=== PATIENT | female | born 1940 | race Caucasian/White ===

== ENCOUNTER → 2017-02-15 | Outpatient (CLI) | payer MEDICARE, MEDICAID ==
[~2017-02-15] MED LIST: BACTRIM DS TAB1 EAC1 ORAL; BENICAR20 MG ORAL; CREON DR 12,001 EACH PO; CREON DR 24,001 EACH PO; JANUMET 50-1,01 EACH ORAL; KEFLEX500 MG ORAL; MOBIC7.5 MG ORAL; NEXIUM40 MG ORAL; NORCO 5-325 TA1 EACH ORAL; RIBAVIRIN200 M1 ORAL; SOVALDI400 MG PO; TRAMADOL HCL50 MG ORAL; VITAMIN D-32000 UNI1 PO
--- NOTE | 2017-02-15 13:28 | Diagnostic Imaging Report ---
Indication: COUGH Technique: Two views of the chest Comparison: 11/21/2014 Findings: There is stable blunting of left costophrenic sulcus but no fluid is seen posteriorly. Suspect chronic. Lungs and pleural spaces are otherwise clear. Heart size is normal. Aorta tortuous and calcified. Upper mediastinum is unremarkable. The bones are unremarkable. There is no significant change Impression: No acute process
== END | disposition home or self-care (01) ==
LOC: RAD 11:58
DX: R05 Cough (principal)
CPT/HCPCS: 71020

== ENCOUNTER → 2017-02-17 | Day surgery (SDC) | payer MEDICARE, MEDICAID ==
[~2017-02-17] VITALS: Ht 160 cm; Wt 79.4 kg
[2017-02-17] VITALS (11 sets, daily range): BP systolic 108–138; BP diastolic 52–64
[~2017-02-17] MED LIST changes: +Bacitracin Oint 15gm Tube TOPIC ONE; +Betamethasone Sod Phos/Acetate 6 MG/ML INJ ONE; +Bupivacaine 0.5% Inj 30 ml vial INJ ONE; +LR 1000ml ONE; +Lidocaine 2% MPF 5ml Vial INJ ONE; +Midazolam 2mg/2ml Inj ONE; +NS Irrig 1000ml ONE; +Propofol 10mg/ml 20ml IV ONE; +Sterile Water Irrig 1000ml IRRIG ONE; +fentaNYL 100 mcg/2 mL IV ONE; +fentaNYL 100 mcg/2 mL IV PRN
--- NOTE | 2017-02-17 07:39 | Pre-Procedure Note/Attestation ---
Pre-Procedure Note/Attestation Complete Prior to Procedure Planned Procedure: right Procedure Narrative: Exostectomy second right digit Indications for Procedure Pre-Operative Diagnosis: Painful exostosis right second digit Painful corn second right digit with history of ulceration Attestation I attest that I discussed the nature of the procedure; its benefits; risks and complications; and alternatives (and the risks and benefits of such alternatives ), prior to the procedure, with the patient (or the patient's legal traffic workforce representative). I attest that, if there was a reasonable possibility of needing a blood transfusion, the patient (or the patient's legal traffic workforce representative) was given the [facility] standardized written summary, pursuant to the [place] Blood Safety Act ([place] Health and Safety Code # 1645, as amended). I attest that I re-evaluated the patient just prior to the surgery and that there has been no change in the patient's H&P, except as documented below: YASHIRA LOO Feb 17, 2017 07:39
--- NOTE | 2017-02-17 08:12 | Brief Operative Note ---
Immediate Post Operative Note Operative Note Pre-op Diagnosis: Painful exostosis right second digit Painful corn second right digit with history of ulceration Procedure: Exostectomy second right digit Post-op Diagnosis: same as pre-op Surgeon: Sylvia Anesthesiologist: Aurelia Etienne Specimen: yes Complications: none Estimated Blood Loss: minimal Drains: none Implant(s) used?: No YASHIRA LOO Feb 17, 2017 08:12
--- NOTE | 2017-02-17 08:21 | Anethesia Preoperative Eval ---
Anesthesia Pre-op PMH/ROS General Date of Evaluation: Feb 17, 2017 Time of Evaluation: 08:18 Anesthesiologist: mamadou ASA Score: ASA 2 Mallampati Score Class I : Soft palate, uvula, fauces, pillars visible Class II: Soft palate, uvula, fauces visible Class III: Soft palate, base of uvula visible Class IV: Only hard plate visible Mallampati Classification: Class II Surgeon: martin Diagnosis: exsostosis of right foot Surgical Procedure: exostectomy right 2nd digit lower extremiety Anesthesia History: none Family History: no anesthesia problems Allergies: Coded Allergies: EQUINE PROTEIN (Verified Allergy, Severe, Shortness of Breath, 08/09/14) Past Medical History Cardiovascular: Reports: HTN Pulmonary: Denies: COPD, PAVITHRA, asthma, other Gastrointestinal/Genitourinary: Denies: CRI, ESRD, GERD, other Endocrine: Reports: DM HEENT: Denies: [place] (L), [place] (R), cataract (L), cataract (R), glaucoma, other Hematology/Immune: Reports: anemia Musculoskeletal/Integumentary: Denies: DDD, DJD, OA, RA, edema, other PSxH Narrative: knee surgery Anesthesia Pre-op Phys. Exam Physician Exam Last Vital Signs Date Time Temp Pulse Resp B/P Pulse Ox O2 Delivery O2 Flow Rate FiO2 02/17/17 06:53 98.4 59 18 128/64 97 Room Air Constitutional: NAD Neurologic: CN 2-12 intact Cardiovascular: RRR Respiratory: CTA Gastrointestinal: S/NT/ND Airway Exam Mallampati Classification 2 Mallampati Score: Class II MO: full ROM: full Dentures: no lower, no upper Anesthesia Pre-op A/P Labs 104 Studies Pre-op Studies: EKG - sr Risk Assessment & Plan Plan: mac Status Change Before Surgery: No Pre-Antibiotics Drug: ancef Given Within 1 Hr of Incision: Yes Time Given: 07:30 TORO MARKHAM CRNA Feb 17, 2017 08:21
--- NOTE | 2017-02-17 08:23 | Immediate Post-Op Evaluation ---
Immediate Post-Op Evalulation Immediate Post-Op Evalulation Procedure: exostectomy right 2nd digit toe Date of Evaluation: Feb 17, 2017 Time of Evaluation: 08:15 IV Fluids: 500 Blood Pressure Systolic: 109 Blood Pressure Diastolic: 52 Pulse Rate: 55 Respiratory Rate: 14 O2 Sat by Pulse Oximetry: 100 Temperature (Fahrenheit): 98.3 Nausea: No Vomiting: No Complications none Patient Status: awake, reacts, patent Hydration Status: adequate Drug: ancef Given Within 1 Hr of Incision: Yes Time Given: 07:30 TORO MARKHAM CRNA Feb 17, 2017 08:23
--- NOTE | 2017-02-17 10:26 | 48 Hour Post Anesthesia Eval ---
Post Anesthesia Evaluation Procedure: exostectomy right 2nd digit toe Date of Evaluation: Feb 17, 2017 Time of Evaluation: 10:26 Blood Pressure Systolic: 125 0: 60 Pulse Rate: 70 O2 Sat by Pulse Oximetry: 99 Airway: patent Nausea: No Vomiting: No Hydration Status: adequate Mental Status/LOC: patient returned to baseline Post-Anesthesia Complications: none Follow-up care needed: N/A TORO MARKHAM CRNA Feb 17, 2017 10:26
--- NOTE | 2017-02-17 11:04 | Diagnostic Imaging Report ---
Indication: POST-OP Technique: 3 views right foot Comparison: none Findings: No acute fractures. No dislocations. Joint spaces are preserved. There is hammertoe deformity of the second third and fourth digits. There is minimal hallux valgus and metatarsus adductus. There is a small plantar spur Impression: No acute process
--- NOTE | 2017-02-17 17:28 | Operative Note - Dictated ---
DATE OF OPERATION: 02/17/2017 SURGEON: Yoseph Ward D.P.M. WOOD TILE INSTALLATION HELPER: Yu Vogel C.R.N.A. ANESTHESIA: Local standby. PREOPERATIVE DIAGNOSES: 1. Painful exostosis, second right digit. 2. Painful corn, second right digit. POSTOPERATIVE DIAGNOSES: 1. Painful exostosis, second right digit. 2. Painful corn, second right digit. PROCEDURES PERFORMED: Exostectomy, second right digit. Description Of The Operation: The patient was brought to the operating room and was placed on the operating room table in the supine position. IV sedation was administered by the anesthesiologist. Local anesthesia consisting of 50:50 mix of 2% Xylocaine plain and 0.5% Marcaine plain, total of 6 mL was administered to the second right digit. The foot was prepped and draped in the usual sterile manner. Attention was directed to the second digit and a 0.25-inch [place] drain was applied with a hemostat to the second right digit. Utilizing a 15 blade, a stab wound incision was performed at the dorsal medial aspect of the second right distal interphalangeal joint. The incision was deepened and utilizing a periosteal elevator, the soft tissue attachments were reflected off of the medial aspect of the intermediate phalanx. At this point, a Joann 44 drill was utilized to resect the exuberant exostosis. The bone piece was expressed out. The wound was copiously flushed utilizing sterile saline. The skin was then reapproximated utilizing 4-0 nylon in a simple interrupted type stitch. The wound was dressed utilizing an Adaptic 2 x 2 gauze and 1 inch Coban. The [place] drain was removed in toto. Vascular supply was noted to all digits of the right foot. The patient tolerated the procedure well and left the operating room to recovery room with all vital signs stable. Yoseph Ward D.P.M. DR: LACY JOB#: [id number] CC:
--- NOTE | 2017-02-17 18:07 | History and Physical Report ---
DATE OF ADMISSION: 02/17/2017 PODIATRIC HISTORY AND PHYSICAL: HISTORY OF PRESENT ILLNESS: This is a 76-year-old white female, who is admitted today for an outpatient exostectomy of her second right digit. The patient has been under my care for the past several years. She has been suffering from a painful corn on her second right digit which on occasions became ulcerated and infected. It was treated conservatively and recommendation was made to relieve the underlying cause of the corn formation in order to prevent further ulcerations and cellulitis in the future. PAST MEDICAL HISTORY: Remarkable for diabetes mellitus, gastritis, hepatitis C, hypertension, sciatica, and anemia. MEDICATIONS: Nexium, Creon, Mobic, Benicar, metformin, and Ultram. ALLERGIES: No known drug allergies. PODIATRIC EXAMINATION: VASCULAR SUPPLY: Dorsalis pedis and posterior tibial arteries are equally palpable measuring 1/4 bilaterally. Capillary filling time is less than 4 to 5 seconds to all digits bilaterally. Homans sign is negative. Mild varicosities and nonpitting edema is noted in bilateral lower extremity. NEUROLOGICAL: Examination reveals intact reflexes, Achilles and patellar, measuring 1/4 bilaterally. SENSATION: Proprioception and vibrations are all intact in bilateral lower extremity. Babinski is absent. Clonus is negative in bilateral lower extremity. MUSCULOSKELETAL: Exam reveals stage 3 hallux abductovalgus with bunion deformity, bilateral foot. The hallux is abutting the second right digit on the right foot. There is a nonreducible hammertoe deformity of the second right digit. The medial aspect of the second right digit is exuberant at the level of the distal interphalangeal joint. Joint range of motion is reduced in bilateral forefoot. No other structural deformities are noted. DERMATOLOGICAL: Examination reveals corn at the medial aspect of the second right digit at the level of the distal interphalangeal joint. The corn at this point is not ulcerated. No other ulcerations or lesions are noted bilaterally with the exception of dorsal erythema over the second right proximal interphalangeal joint. All nails are present and dystrophic bilaterally. ASSESSMENT: 1. Hallux abductovalgus with bunion deformity. 2. Hammertoe deformity. 3. Painful exostosis, second right digit. 4. Painful corn, second right digit. PLAN: The patient is admitted today for an exostectomy of the second right digit. Postoperative instructions were given to the patient. Postoperative medications were dispensed to the patient. The patient elected to proceed with surgery. Ysoeph Ward D.P.M. DR: Ирина JOB#: [id number] CC:
== END | disposition home or self-care (01) ==
LOC: SUR 05:48
DX: M89.9 Disorder of bone, unspecified (principal); L84 Corns and callosities; M21.612 Bunion of left foot; M21.611 Bunion of right foot; M20.41 Other hammer toe(s) (acquired), right foot; E11.9 Type 2 diabetes mellitus without complications; I10 Essential (primary) hypertension; M54.40 Lumbago with sciatica, unspecified side; D64.9 Anemia, unspecified; I73.9 Peripheral vascular disease, unspecified; J45.909 Unspecified asthma, uncomplicated; D69.6 Thrombocytopenia, unspecified; I83.93 Asymptomatic varicose veins of bilateral lower extremities; R60.9 Edema, unspecified; I35.0 Nonrheumatic aortic (valve) stenosis; Z86.19 Personal history of other infectious and parasitic diseases; Z87.442 Personal history of urinary calculi
CPT/HCPCS: 28124; 73630; 82962; J0690; J2250; J2704; J3010; J3490; J7120; 94003; 94150

== ENCOUNTER 2018-06-13 16:24 | Emergency (ER) | payer MEDICARE, MEDICAID ==
[~2018-06-13] VITALS: Ht 160 cm; Wt 77.1 kg
[~2018-06-13 16:24] MED LIST changes: -Bacitracin Oint 15gm Tube TOPIC ONE; -Betamethasone Sod Phos/Acetate 6 MG/ML INJ ONE; -Bupivacaine 0.5% Inj 30 ml vial INJ ONE; -LR 1000ml ONE; -Lidocaine 2% MPF 5ml Vial INJ ONE; -Midazolam 2mg/2ml Inj ONE; -NS Irrig 1000ml ONE; -Propofol 10mg/ml 20ml IV ONE; -Sterile Water Irrig 1000ml IRRIG ONE; -fentaNYL 100 mcg/2 mL IV ONE; -fentaNYL 100 mcg/2 mL IV PRN
[2018-06-13 16:45] VITALS: BP 148/65
[2018-06-13] MEDS ORDERED: Piperacillin/Tazobactam 3.375 GM in NS 110 ML IVPB ONE (16:45)
--- NOTE | 2018-06-13 16:49 | Emergency Room Report ---
History of Present Illness General Chief Complaint: General Complaint Source: Patient, Medical Record Present Illness HPI Patient is a 78-year-old female who presented after increased right lower extremity pain. Patient reportedly had been injured by her dog approximately 4 days ago. The patient had increased the redness and pain. The patient was noted to have increased discomfort to the right lower extremity. Patient was able to ambulate. She had prior similar symptoms in the past. She is allergic to tetanus vaccine. Allergies: Coded Allergies: EQUINE PROTEIN (Verified Allergy, Severe, Shortness of Breath, 08/09/14) Patient History Reviewed Nursing Documentation: PMH: Agreed; PSxH: Agreed Nursing Documentation-PMH Past Medical History: No History, Except For Hx Cardiac Problems: Yes Hx Hypertension: Yes Hx Diabetes: Yes Hx Cancer: No Hx Gastrointestinal Problems: Yes - s/p lisa Hx Neurological Problems: No Physical Exam Vital Signs Date Time Temp Pulse Resp B/P (MAP) Pulse Ox O2 Delivery O2 Flow Rate FiO2 06/13/18 16:32 99.1 86 18 158/65 98 Room Air 99.1 Medical Decision Making Restraint Attestation Diagnostic Impression: Primary Impression: Cellulitis of right leg Additional Impression: Diabetes ER Course Patient presented for right lower extremity pain. Differential diagnosis included wasn't limited to DVT, cellulitis, necrotizing Fasciitis, abscess among others.Because of complexity of patient's case laboratory testing and imaging studies were ordered.The blood cultures were obtained and patient was given IV antibioticsThe patient was noted to have febrile with evidence of cellulitis. Others not appear to be any evidence of abscess. X-ray imaging of the right lower extremity showed no evidence of free air. Patient was noted to have elevated The patient was noted to have elevated lactic acid level with normal white blood count. she was given Zosyn as well as Flagyl. The patient was advised risk benefits alternatives of leaving AGAINST MEDICAL ADVICE and he indicated understanding and all questions are answered patient still continued want to leave and signed AGAINST MEDICAL ADVICE. Despite risks including but not limited to disability , loss of limb, and worsening of current lifestyle. The patient indicated understanding and wanted to leave the facility despite risks. Patient is advised she can return at any time. Labs Test 06/13/18 17:08 06/13/18 17:40 Urine Color Pale yellow Urine Appearance Clear Urine pH 8 (4.5-8.0) Urine Specific [place] 1.010 (1.005-1.035) Urine Protein 2+ (NEGATIVE) Urine Glucose (UA) Negative (NEGATIVE) Urine Ketones Negative (NEGATIVE) Urine Occult Blood 2+ (NEGATIVE) Urine Nitrite Negative (NEGATIVE) Urine Bilirubin Negative (NEGATIVE) Urine Urobilinogen Normal MG/DL (0.0-1.0) Urine Leukocyte Esterase Negative (NEGATIVE) Urine RBC 2-4 /HPF (0 - 2) Urine WBC 0-2 /HPF (0 - 2) Urine Squamous Epithelial Cells Few /LPF (NONE/OCC) Urine Amorphous Sediment Few /LPF (NONE) Urine Bacteria Few /HPF (NONE) White Blood Count 6.1 K/UL (4.8-10.8) Red Blood Count 4.62 M/UL (4.20-5.40) Hemoglobin 12.5 G/DL (12.0-16.0) Hematocrit 37.8 % (37.0-47.0) Mean Corpuscular Volume 82 FL (80-99) Mean Corpuscular Hemoglobin 27.0 PG (27.0-31.0) Mean Corpuscular Hemoglobin Concent 33.0 G/DL (32.0-36.0) Red Cell Distribution Width 13.5 % (11.6-14.8) Platelet Count 59 K/UL (150-450) Mean Platelet Volume 8.9 FL (6.5-10.1) Neutrophils (%) (Auto) % (45.0-75.0) Lymphocytes (%) (Auto) % (20.0-45.0) Monocytes (%) (Auto) % (1.0-10.0) Eosinophils (%) (Auto) % (0.0-3.0) Basophils (%) (Auto) % (0.0-2.0) Differential Total Cells Counted 100 Neutrophils % (Manual) 68 % (45-75) Lymphocytes % (Manual) 20 % (20-45) Monocytes % (Manual) 9 % (1-10) Eosinophils % (Manual) 0 % (0-3) Basophils % (Manual) 1 % (0-2) Band Neutrophils 2 % (0-8) Platelet Estimate Decreased Platelet Morphology Normal Anisocytosis 1+ Prothrombin Time 10.6 SEC (9.30-11.50) Prothromb Time International Ratio 1.0 (0.9-1.1) Activated Partial Thromboplast Time 29 SEC (23-33) Sodium Level 139 MMOL/L (136-145) Potassium Level 4.4 MMOL/L (3.5-5.1) Chloride Level 103 MMOL/L (98-107) Carbon Dioxide Level 24 MMOL/L (21-32) Anion Gap 12 mmol/L (5-15) Blood Urea Nitrogen 22 mg/dL (7-18) Creatinine 1.2 MG/DL (0.55-1.30) Estimat Glomerular Filtration Rate mL/min (>60) Glucose Level 102 MG/DL (74-106) Lactic Acid Level 2.90 mmol/L (0.4-2.0) Calcium Level 9.3 MG/DL (8.5-10.1) Total Bilirubin 0.7 MG/DL (0.2-1.0) Aspartate Amino Transf (AST/SGOT) 40 U/L (15-37) Alanine Aminotransferase (ALT/SGPT) 67 U/L (12-78) Alkaline Phosphatase 48 U/L (46-116) Total Creatine Kinase 106 U/L (26-308) Creatine Kinase MB 1.0 NG/ML (0.0-3.6) Creatine Kinase MB Relative Index 0.9 Troponin I 0.000 ng/mL (0.000-0.056) Pro-B-Type Natriuretic Peptide 237 pg/mL (0-125) Total Protein 8.1 G/DL (6.4-8.2) Albumin 4.1 G/DL (3.4-5.0) Globulin 4.0 g/dL Albumin/Globulin Ratio 1.0 (1.0-2.7) EKG Diagnostic Results Rate: normal Rhythm: NSR ST Segments: no acute changes Last Vital Signs Date Time Temp Pulse Resp B/P (MAP) Pulse Ox O2 Delivery O2 Flow Rate FiO2 06/13/18 16:32 99.1 86 18 158/65 98 Room Air 99.1 Status: unchanged Disposition: AGAINST MEDICAL ADVICE Condition: Serious Scripts Amoxicillin/Potassium Clav 875-125* (AUGMENTIN 875-125 TABLET*) 1 Each Tablet 1 TAB ORAL TWICE A DAY, #14 TAB Prov: Rosendo Baldwin MD 06/13/18 Rosendo Baldwin MD Jun 13, 2018 16:49
[2018-06-13 17:44] LABS: APPEARANCE,URINE CLEAR; BILIRUBIN, URINE NEGATIVE (NEGATIVE); COLOR,URINE PALE YELLOW; GLUCOSE, URINE (UA) NEGATIVE (NEGATIVE); KETONES,URINE NEGATIVE (NEGATIVE); LEUKOCYTE ESTERASE ,URINE NEGATIVE (NEGATIVE); NITRITE,URINE NEGATIVE (NEGATIVE); PH,URINE 8 (4.5-8.0); PROTEIN,URINE 2+ (NEGATIVE); UROBILINOGEN,URINE NORMAL MG/DL (0.0-1.0)
[2018-06-13 18:13] LABS: HEMATOCRIT 37.8 % (37.0-47.0); HEMOGLOBIN 12.5 G/DL (12.0-16.0); MEAN CORPUSCULAR VOLUME 82 FL (80-99); PLATELET COUNT 59 K/UL (150-450); RED BLOOD COUNT 4.62 M/UL (4.20-5.40); RED CELL DISTRIBUTION WIDTH 13.5 % (11.6-14.8); WHITE BLOOD COUNT 6.1 K/UL (4.8-10.8)
[2018-06-13 18:14] LABS: ANION GAP 12 mmol/L (5-15); BLOOD UREA NITROGEN 22 mg/dL (7-18); CALCIUM 9.3 MG/DL (8.5-10.1); CARBON DIOXIDE 24 MMOL/L (21-32); CHLORIDE 103 MMOL/L (98-107); CREATININE 1.2 MG/DL (0.55-1.30); POTASSIUM 4.4 MMOL/L (3.5-5.1); SODIUM 139 MMOL/L (136-145)
[2018-06-13 18:27] LABS: ALANINE AMINOTRANSFERASE 67 U/L (12-78); ALBUMIN 4.1 G/DL (3.4-5.0); ALKALINE PHOSPHATASE 48 U/L (46-116); ASPARTATE AMINO TRANSFERASE 40 U/L (15-37); BILIRUBIN,TOTAL 0.7 MG/DL (0.2-1.0); CREATINE KINASE 106 U/L (26-308)
[2018-06-13] MEDS ORDERED: AUGMENTIN 875-1 EAC1 ORAL (19:25)
[2018-06-13 19:31] VITALS: BP_DIAS 140
[2018-06-13 19:32] VITALS: BP 140/70
--- NOTE | 2018-06-14 08:39 | Diagnostic Imaging Report ---
Indication: Leg pain and cellulitis Technique: 2 views of the right tibia and fibula Comparison: none Findings: There is a right knee prosthesis which appears to be in good position. No acute fracture. No dislocations. No soft tissue gas. No bony disruption, osseous erosions, or periosteal elevation Impression: No acute process
== END 2018-06-13 19:34 | disposition left against medical advice (07) ==
LOC: EMR 16:48
DX: L03.115 Cellulitis of right lower limb (principal); E11.9 Type 2 diabetes mellitus without complications; Z88.7 Allergy status to serum and vaccine
CPT/HCPCS: 36415; 73590; 80053; 81003; 82550; 82553; 83605; 83880; 84484; 85007; 85025; 85610; 85730; 87040; 93005; 96365; 96366; 96368; 99285; J2543